=== PATIENT | female | born 1960 | race Caucasian/White ===

== ENCOUNTER 2018-01-21 13:11 | Emergency (ER) | payer MEDICARE ==
[2018-01-21] MEDS ORDERED: TORAdol 30 mg Injection (14:10)
[2018-01-21] MEDS: TORAdol 30 mg Injection IM (14:11)
== END 2018-01-21 14:32 | disposition home or self-care (01) ==
LOC: ED 13:11
CPT/HCPCS: J1885

== ENCOUNTER 2024-11-19 16:32 | Emergency (ER) | payer MEDICARE, OTHER ==
[2024-11-19 17:02] VITALS: TEMP 96.7
[2024-11-19 17:23] LABS: Absolute Neutrophil Ct (ANC) 5.38 x10^3/uL (1.56-6.13); BASOPHIL % 0.4 % (0.1-1.2); Basophil (Absolute #) 0.03 x10^3/uL (0.01-0.08); Eosinophil % 0.1 % (0.7-5.8); Eosinophil (Absolute #) 0.01 x10^3/uL (0.04-0.36); Hematocrit 38.1 % (34.1-44.9); Hemoglobin 12.4 g/dL (11.2-15.7); IMMATURE GRAN # 0.03 x10^3u/L (0.001-0.031); IMMATURE GRAN % 0.4 % (0.001-0.429); Lymphocyte (Absolute #) 1.73 x10^3/uL (1.18-3.74); Lymphocytes % 22.2 % (19.3-51.7); Mean Cell Volume 90.7 fL (79.4-94.8); Mean Corpuscular Hemoglobin 29.5 pg (25.6-32.2); Mean Corpuscular Hgb Concent. 32.5 g/dL (32.2-35.5); Mean Platelet Volume 11.1 fL (9.4-12.3); Monocytes % 7.7 % (4.7-12.5); Neutrophil % 69.2 % (34.0-71.1); Platelet Count 173 x10^3/uL (182-369); Red Cell Distribution Width 12.9 % (11.7-14.4); White Blood Count 7.8 x10^3/uL (3.98-10.04)
--- NOTE | 2024-11-19 17:31 | ERPHSYRPT ---
- History of Present Illness Time Seen by Provider: 11/19/24 17:27 Source: patient Exam Limitations: no limitations Patient Subjective Stated Complaint: pt here for cough, congestion for couple days now. no fever Triage Nursing Assessment: pt alert, walked in, resp easy, occ cough. skin w/d/p Physician History: Patient is 64-year-old female with significant past medical history of smoking hypertension started having a cough for last 2 to 3 days with some productive phlegm. Patient denies any fever or shortness of breath chest pain nausea vomiting abdominal pain or diarrhea. Timing/Duration: day(s) (2-3 days) Cough Quality/Degree: dry cough Possible Cause: no prior episodes Associated Symptoms: denies symptoms Allergies/Adverse Reactions: No Known Drug Allergies Allergy (Verified 11/19/24 16:59) Home Medications: Clopidogrel Bisulfate [Clopidogrel] 75 mg PO DAILY 11/19/24 [History] Metoprolol Tartrate 50 mg [Lopressor 50 MG] 50 mg PO BID 11/19/24 [History] Simvastatin 10 mg [Zocor 10MG] 10 mg PO DAILY 11/19/24 [History] Hx Tetanus, Diphtheria Vaccination/Date Given: No Hx Influenza Vaccination/Date Given: No Hx Pneumococcal Vaccination/Date Given: No Immunizations Up to Date: Yes Travel Risk - International Travel Have you traveled outside of the country in past 3 weeks: No - Emerging Infectious Disease Are you exhibiting symptoms associated with any current EIDs: Yes Symptoms: Cough: New Onset - Review of Systems Constitutional: No Fever, No Chills Eyes: No Symptoms Ears, Nose, & Throat: No Symptoms Respiratory: Cough, No Dyspnea Cardiac: No Chest Pain, No Edema, No Syncope Abdominal/Gastrointestinal: No Abdominal Pain, No Nausea, No Vomiting, No Diarrhea Genitourinary Symptoms: No Dysuria Musculoskeletal: No Back Pain, No Neck Pain Skin: No Rash Neurological: No Dizziness, No Focal Weakness, No Sensory Changes Psychological: No Symptoms Endocrine: No Symptoms All Other Systems: Reviewed and Negative - Past Medical History Pertinent Past Medical History: Yes Neurological History: No Pertinent History ENT History: No Pertinent History Cardiac History: Hypertension Respiratory History: No Pertinent History Endocrine Medical History: No Pertinent History Musculoskeletal History: Arthritis GI Medical History: No Pertinent History History: No Pertinent History Psycho-Social History: Depression Female Reproductive Disorders: No Pertinent History - Past Surgical History Past Surgical History: No Neuro Surgical History: No Pertinent History Cardiac: Other Respiratory: No Pertinent History Gastrointestinal: No Pertinent History Genitourinary: No Pertinent History Musculoskeletal: No Pertinent History Female Surgical History: No Pertinent History Other Surgical History: carotid - Social History Smoking Status: Current every day smoker Exposure to second hand smoke: Yes Drug Use: marijuana - Social Determinants of Health Will the patient participate in the screening: Declined to provide - Nursing Vital Signs Nursing Vital Signs: Initial Vital Signs Temperature 96.7 F 11/19/24 17:01 Pulse Rate 95 H 11/19/24 17:01 Respiratory Rate 16 11/19/24 17:01 Blood Pressure 166/85 11/19/24 17:01 O2 Sat by Pulse Oximetry 96 11/19/24 17:01 Pain Scale Pain Intensity 3 - Physical Exam General Appearance: no apparent distress, alert Eye Exam: PERRL/EOMI, eyes nml inspection Ears, Nose, Throat Exam: normal ENT inspection, TMs normal, pharynx normal, moist mucous membranes Neck Exam: normal inspection, non-tender, supple, full range of motion Respiratory Exam: diminished breath sounds, No respiratory distress Cardiovascular Exam: regular rate/rhythm, normal heart sounds Gastrointestinal/Abdomen Exam: soft, No tenderness Back Exam: normal inspection, No CVA tenderness, No vertebral tenderness Extremity Exam: normal inspection, normal range of motion Neurologic Exam: alert, oriented x 3, cooperative, normal mood/affect, sensation nml, No motor deficits Skin Exam: normal color, warm, dry, No rash Lymphatic Exam: No adenopathy SpO2: 96 - Course Nursing assessment & vital signs reviewed: Yes - Radiology Exams Chest X-ray Interpretation: Interpreted by me, Reviewed by me, Negative, No Pneumonia Ordered Tests: Active Orders 24 hr Category Date Time Status CHEST 2 VIEWS (PA AND LAT) Stat Exams 11/19/24 17:26 Taken CBC W DIFF Stat Lab 11/19/24 17:21 Completed CMP Stat Lab 11/19/24 17:21 Completed Respiratory Therapy Assessment DAILY RT 11/19/24 18:08 Active Medication Summary Discontinued Medications Generic Name Dose Route Start Last Admin Trade Name Freq PRN Reason Stop Dose Admin Albuterol/Ipratropium 3 ml 11/19/24 17:45 11/19/24 18:04 Ipratropium/Albuterol Sulfate 3 Ml Ampul.Neb IH 11/19/24 17:46 3 ml STAT ONE Administration Albuterol/Ipratropium Confirm 11/19/24 17:48 Ipratropium/Albuterol Sulfate 3 Ml Ampul.Neb Administered 11/19/24 17:49 Dose 3 ml IH .STK-MED ONE Budesonide 0.5 mg 11/19/24 17:45 11/19/24 18:04 Budesonide 0.5 Mg/2 Ml Ampul.Neb. IH 11/19/24 17:46 0.5 mg ONCE ONE Administration Lab/Rad Data: Laboratory Result Diagrams 11/19/24 17:21 11/19/24 17:21 Laboratory Results 11/19/24 11/19/24 11/19/24 Range/Units 17:21 17:21 17:06 WBC 7.8 (3.98-10.04) x10^3/uL RBC 4.20 (3.93-5.22) x10^6/uL Hgb 12.4 (11.2-15.7) g/dL Hct 38.1 (34.1-44.9) % MCV 90.7 (79.4-94.8) fL MCH 29.5 (25.6-32.2) pg MCHC 32.5 (32.2-35.5) g/dL RDW 12.9 (11.7-14.4) % Plt Count 173 L (182-369) x10^3/uL MPV 11.1 (9.4-12.3) fL Gran % 69.2 (34.0-71.1) % Immature Gran % (Auto) 0.4 (0.001-0.429) % Nucleat RBC Rel Count 0.0 (0.00-0.2) % Eos # (Auto) 0.01 L (0.04-0.36) x10^3/uL Immature Gran # (Auto) 0.03 (0.001-0.031) x10^3u/L Absolute Lymphs (auto) 1.73 (1.18-3.74) x10^3/uL Absolute Monos (auto) 0.60 (0.24-0.86) x10^3/uL Absolute Nucleated RBC 0.00 (0.00-0.012) x10^3u/L Lymphocytes % 22.2 (19.3-51.7) % Monocytes % 7.7 (4.7-12.5) % Eosinophils % 0.1 L (0.7-5.8) % Basophils % 0.4 (0.1-1.2) % Absolute Granulocytes 5.38 (1.56-6.13) x10^3/uL Basophils # 0.03 (0.01-0.08) x10^3/uL Sodium 144 (135-145) mmol/L Potassium 4.3 (3.5-5.1) mmol/L Chloride 107 (98-107) mmol/L Carbon Dioxide 25 (22-30) mmol/L Anion Gap 15.9 H (5-15) MEQ/L BUN 17 (7-17) mg/dL Creatinine 0.88 (0.52-1.04) mg/dL Estimated GFR 73.3 ML/MIN Glucose 135 H (74-106) mg/dL Calcium 8.9 (8.4-10.2) mg/dL Total Bilirubin 0.40 (0.2-1.3) mg/dL AST 36 (14-36) U/L ALT 26 (0-35) U/L Alkaline Phosphatase 72 (38-126) U/L Serum Total Protein 7.2 (6.3-8.2) g/dL Albumin 4.2 (3.5-5.0) g/dL Influenza Type A Ag NEGATIVE (NEGATIVE) Influenza Type B Ag NEGATIVE (NEGATIVE) RSV (PCR) NEGATIVE (NEGATIVE) SARS-CoV-2 (PCR) POSITIVE A (NEGATIVE) - Progress Progress: unchanged Air Movement: good Blood Culture(s) Obtained: No Counseled pt/family regarding: lab results, diagnosis, need for follow-up, rad results, smoking cessation Medical Desision Making - Diagnostic Testing Diagnostic test were ordered, analyzed, and reviewed by me: Yes Radiological Interpretation: Interpreted by me, Reviewed by me - Risk of complications Low Risk: Low risk of morbidity from additional dx testing or treatment - Departure Departure Disposition: Home Clinical Impression: Acute viral bronchitis, Bronchitis due to COVID-19 virus Condition: Stable Critical Care Time: No Referrals: ZANA LOWRY [Primary Care Provider] - Follow up/PCP as directed Instructions: Acute bronchitis in adults, Cough, Adult (DC), COVID-19 - ED discharge instructions Additional Instructions: Discharge/Care Plan OZZY GOMEZ was seen on 11/19/24 in the Emergency Room. The patient was counseled regarding Diagnosis,Lab results, Imaging studies, need for follow up and when to return to the Emergency Room. Prescriptions given: Discharge Note I have spoken with the patient and/or caregivers. I have explained the patient's condition, diagnosis and treatment plan based on the information available to me at this time. I have answered the patient's and/or caregiver's questions and addressed any concerns. The patient and/or caregivers have as good understanding of the patient's diagnosis, condition and treatment plan as can be expected at this point. The vital signs have been stable. The patient's condition is stable and appropriate for discharge from the emergency department. The patient will pursue further outpatient evaluation with the primary care physician or other designated or consulting physician as outlined in the discharge instructions. The patient and/or caregivers are agreeable to this plan of care and follow-up instructions have been explained in detail. The patient and/or caregivers have received these instruction. The patient/and or caregivers are aware that any significant change in condition or worsening of symptoms should prompt an immediate return to this or the closest emergency department or call 911. OZZY GOMEZ was seen on 11/19/24 n the Emergency Room. At that time you were treated for an emergent condition, during your visit Laboratory, Radiology and/or other procedures may have been ordered. It is very important that you follow-up with your Primary Care Physician ZANA LOWRY within the next 24-48 hours to review your Emergency Room visit and the final results of testing that was ordered. Some test results such as Urine Cultures, Blood Cultures, and other cultures if ordered will not be finalized for 24-48 hours. If you do not have a Primary Care Provider please call the medical records department at [phone] ext [phone] to obtain a copy of your results or you may sign into our patient portal to obtain these results by visiting us @ [email or web address] and completing the following steps: 1. Click on the Patient Portal link 2. Click the Patient Self Enrollment Link to complete the enrollment form and entering your 3. Once the enrollment form is completed you will receive an email with a temporary ID and password at the email address you provided. 4. Next choose a user name and password. Your user name must be at least 4 characters long and your password must be at least 4 characters long. 5. Choose a security question from the list and provide your answer to the question. If you already have signed into the Health Portal you may access your Health Care Information 29/03 by the following steps: 1. Login to our website @ [email or web address] 2. Enter your original user name and password. FAQS The [facility] Health Portal is an online tool that contains your Lab Results, Radiology Reports, Visit History, Discharge Instructions and Health Summary Lab and Radiology Results will not be available for 72 hours on the portal. The Portal is a secure site, passwords are encryted and URLs are re-written so they cannot be copied and pasted. You and authorized family members are the only ones who can access your Portal. Also there is a timeout feature that protects your information if you leave the Portal page open. If you have technical difficulty please use the Contact Us link on the page this will allow you to submit any questions you have regarding the Portal or you may contact the Medical Record Department at [phone] ext [phone]. Prescriptions: Benzonatate 100 mg PO QID #20 cap Budesonide/Formoterol Fumarate [Budesonide-Formoterol 80-4.5] 10.2 gm IH BID #60 inh
[2024-11-19 17:36] LABS: ALBUMIN 4.2 g/dL (3.5-5.0); ANION GAP 15.9 MEQ/L (5-15); BILIRUBIN,TOTAL 0.4 mg/dL (0.2-1.3); Calcium 8.9 mg/dL (8.4-10.2); Creatinine 1 0.88 mg/dL (0.52-1.04); EST GLOMERULAR FILTRATION RATE 73.3 ML/MIN; Potassium 4.3 mmol/L (3.5-5.1); Total Protein 7.2 g/dL (6.3-8.2)
[2024-11-19 17:44] LABS: INFLUENZA A NEGATIVE (NEGATIVE); INFLUENZA B NEGATIVE (NEGATIVE); RESPIRATORY SYNCTIAL VIRUS NEGATIVE (NEGATIVE)
[2024-11-19 17:48] VITALS: RESP 18
[2024-11-19] MEDS ORDERED: DUONEB 0.5-3 MG/3 ml Neb IH ONE (17:48)
[2024-11-19 18:03] LABS: SARS-CoV-2 Xpert Express POSITIVE (NEGATIVE)
[2024-11-19] MEDS: DUONEB 0.5-3 MG/3 ml Neb IH ONE (18:04)
[2024-11-19] MEDS: PULMICORT 0.5 MG/2 ML RESPULES IH ONE (18:04)
[2024-11-19 18:54] VITALS: BP 134/72; PULSE 74; O2SAT 99
--- NOTE | 2024-11-19 19:47 | XRAY ---
Indication: Cough. Comparison: August 01, 2021 PA/lateral chest again hyperinflated without focal infiltrate, consolidation, or large effusion. Heart and mediastinal structures within normal limits. Bony thorax intact again with osteopenia and mild degenerative changes. Impression: Nonacute hyperinflated chest with chronic features.
== END 2024-11-19 18:54 | disposition home or self-care (01) ==
LOC: ED 16:32
DX: U07.1 COVID-19 (principal); J20.8 Acute bronchitis due to other specified organisms; B97.29 Other coronavirus as the cause of diseases classified elsewhere; R05.1 Acute cough; I10 Essential (primary) hypertension; Z79.02 Long term (current) use of antithrombotics/antiplatelets; Z79.899 Other long term (current) drug therapy; Z72.0 Tobacco use
CPT/HCPCS: 0241U; 36415; 71046; 80053; 85025; 94640; 99285; 99283; A9270-GY

== ENCOUNTER 2025-06-24 09:26 | Emergency (ER) | payer MEDICARE, OTHER ==
[2025-06-24 09:38] VITALS: TEMP 98.2
--- NOTE | 2025-06-24 09:48 | ERPHSYRPT ---
- History of Present Illness Patient Subjective Stated Complaint: patient walked into ED drove herself here today shes got horrible cough Triage Nursing Assessment: tio walked into ED by self, gait is steady, alert and orientedx3, persistant cough for a week now, says granddaughter had croup, shes has shortnes of breath at rest. lung sounds bilateral posterior crackles, some audible wheezes. patient states she is coughing up milky mucus. Physician History: Cough, worse since yesterday, continues to smoke, has not been using her inhaler as she thinks she is out of the medication, she does not use home oxygen, this is not her worst episode,Cough is productive of White phlegm, Denies any chest pain, no fevers, Onset of symptoms about a week ago exposed to someone in the home who has croup Timing/Duration: week(s) (1) Severity of Dyspnea-Max: moderate Severity of Dyspnea-Current: moderate Allergies/Adverse Reactions: No Known Drug Allergies Allergy (Verified 06/24/25 09:39) Home Medications: Clopidogrel Bisulfate [Clopidogrel] 75 mg PO DAILY 11/19/24 [History] Metoprolol Tartrate 50 mg [Lopressor 50 MG] 50 mg PO BID 11/19/24 [History] Simvastatin 10 mg [Zocor 10MG] 10 mg PO DAILY 11/19/24 [History] Hx Tetanus, Diphtheria Vaccination/Date Given: No Hx Influenza Vaccination/Date Given: No Hx Pneumococcal Vaccination/Date Given: No Immunizations Up to Date: Yes Travel Risk - International Travel Have you traveled outside of the country in past 3 weeks: No - Emerging Infectious Disease Are you exhibiting symptoms associated with any current EIDs: No Symptoms: Cough: New Onset - Past Medical History Pertinent Past Medical History: Yes Neurological History: No Pertinent History ENT History: No Pertinent History Cardiac History: Hypertension Respiratory History: No Pertinent History Endocrine Medical History: No Pertinent History Musculoskeletal History: Arthritis GI Medical History: No Pertinent History History: No Pertinent History Psycho-Social History: Depression Female Reproductive Disorders: No Pertinent History - Past Surgical History Past Surgical History: No Neuro Surgical History: No Pertinent History Cardiac: Other Respiratory: No Pertinent History Gastrointestinal: No Pertinent History Genitourinary: No Pertinent History Musculoskeletal: No Pertinent History Female Surgical History: No Pertinent History Other Surgical History: carotid - Social History Smoking Status: Current every day smoker Drug Use: none - Social Determinants of Health Will the patient participate in the screening: Yes Do you worry about a steady place to live?: No Do you have any problems with any of the following?: No known problems In the past 12 months,have you had to go without utilities?: No Transportation Issues: No Has anyone in your support network made you feel unsafe?: No Have you or anyone in your house had to go w/o enough food: No - Nursing Vital Signs Nursing Vital Signs: Initial Vital Signs Temperature 98.2 F 06/24/25 09:27 Pulse Rate 88 06/24/25 09:27 Respiratory Rate 18 06/24/25 09:27 Blood Pressure 180/79 06/24/25 09:27 O2 Sat by Pulse Oximetry 92 L 06/24/25 09:27 Pain Scale Pain Intensity 0 - Physical Exam General Appearance: no apparent distress, obese Eye Exam: PERRL/EOMI Neck Exam: normal inspection, supple Respiratory Exam: wheezing Cardiovascular/Chest Exam: normal heart sounds, regular rate/rhythm Abdominal/Gastrointestinal Exam: soft, No tenderness, No distention, No mass Extremity Exam: non-tender, normal range of motion, normal inspection, no calf tenderness, no pedal edema Neurologic Exam: alert, oriented x 3, cooperative, 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 as tested, sensation nml, No motor deficits Skin Exam: normal color, warm, No dry SpO2 Interpretation: normal SpO2: 96 - Radiology Exams Chest X-ray Interpretation: Interpreted by me, No Pneumonia, No Pneumothorax Ordered Tests: Active Orders 24 hr Category Date Time Status It Project Coordinator STAT Care 06/24/25 09:39 Active IV Insertion STAT Care 06/24/25 09:38 Active CHEST 1 VIEW (PORTABLE) Stat Exams 06/24/25 09:38 Ordered BMP Stat Lab 06/24/25 09:50 Completed CBC W DIFF Stat Lab 06/24/25 09:50 Completed Respiratory Therapy Assessment DAILY RT 06/24/25 09:44 Active Medication Summary Discontinued Medications Generic Name Dose Route Start Last Admin Trade Name Freq PRN Reason Stop Dose Admin Albuterol Sulfate 5 mg 06/24/25 09:38 06/24/25 09:57 Albuterol Sulfate 2.5 Mg/3 Ml Neb IH 06/24/25 09:39 5 mg STAT ONE Administration Albuterol Sulfate Confirm 06/24/25 09:54 Albuterol Sulfate 2.5 Mg/3 Ml Neb Administered 06/24/25 09:55 Dose 5 mg IH .STK-MED ONE Lab/Rad Data: Laboratory Result Diagrams 06/24/25 09:50 06/24/25 09:50 Laboratory Results 06/24/25 06/24/25 Range/Units 09:50 09:50 WBC 9.9 (3.98-10.04) x10^3/uL RBC 4.55 (3.93-5.22) x10^6/uL Hgb 13.7 (11.2-15.7) g/dL Hct 41.8 (34.1-44.9) % MCV 91.9 (79.4-94.8) fL MCH 30.1 (25.6-32.2) pg MCHC 32.8 (32.2-35.5) g/dL RDW 12.7 (11.7-14.4) % Plt Count 199 (182-369) x10^3/uL MPV 11.1 (9.4-12.3) fL Gran % 67.7 (34.0-71.1) % Immature Gran % (Auto) 0.5 H (0.001-0.429) % Nucleat RBC Rel Count 0.0 (0.00-0.2) % Eos # (Auto) 0.18 (0.04-0.36) x10^3/uL Immature Gran # (Auto) 0.05 H (0.001-0.031) x10^3u/L Absolute Lymphs (auto) 2.20 (1.18-3.74) x10^3/uL Absolute Monos (auto) 0.72 (0.24-0.86) x10^3/uL Absolute Nucleated RBC 0.00 (0.00-0.012) x10^3u/L Lymphocytes % 22.3 (19.3-51.7) % Monocytes % 7.3 (4.7-12.5) % Eosinophils % 1.8 (0.7-5.8) % Basophils % 0.4 (0.1-1.2) % Absolute Granulocytes 6.69 H (1.56-6.13) x10^3/uL Basophils # 0.04 (0.01-0.08) x10^3/uL Sodium 142 (135-145) mmol/L Potassium 4.0 (3.5-5.1) mmol/L Chloride 110 H (98-107) mmol/L Carbon Dioxide 24 (22-30) mmol/L Anion Gap 13.1 (5-15) MEQ/L BUN 13 (7-17) mg/dL Creatinine 0.75 (0.52-1.04) mg/dL Estimated GFR 88.3 ML/MIN Glucose 104 (74-106) mg/dL Calcium 9.1 (8.4-10.2) mg/dL - Progress Progress: improved Progress Note: 06/24/25 10:48 estimated PEAK FLOW > 250L/min, discussed treatment, 5 day course of steroid, Abx(Doxycycline), she states her MDI is new; follow up to PCP at the end of next week - Departure Departure Disposition: Home Clinical Impression: COPD exacerbation Condition: Fair Critical Care Time: No Referrals: ZANA LOWRY [Primary Care Provider, [facility]] - Follow up with PCP 4 days Instructions: Chronic Obstructive Pulmonary Disease Prescriptions: Prednisone 20 mg [Deltasone 20 mg] 40 mg PO DAILY 5 Days #10 tablet Doxycycline Hyclate 100 mg [Vibramycin 100 MG] 100 mg PO BID 10 Days #20 tab
[2025-06-24] MEDS ORDERED: PROVENTIL 2.5 MG/3 ML NEB IH ONE (09:54)
[2025-06-24 09:57] LABS: BASOPHIL % 0.4 % (0.1-1.2); Basophil (Absolute #) 0.04 x10^3/uL (0.01-0.08); Eosinophil (Absolute #) 0.18 x10^3/uL (0.04-0.36); Hematocrit 41.8 % (34.1-44.9); Hemoglobin 13.7 g/dL (11.2-15.7); IMMATURE GRAN # 0.05 x10^3u/L (0.001-0.031); IMMATURE GRAN % 0.5 % (0.001-0.429); Lymphocyte (Absolute #) 2.20 x10^3/uL (1.18-3.74); Mean Corpuscular Hemoglobin 30.1 pg (25.6-32.2); Mean Corpuscular Hgb Concent. 32.8 g/dL (32.2-35.5); Monocyte (Absolute #) 0.72 x10^3/uL (0.24-0.86); NUCLEATED RBC # 0.00 x10^3u/L (0.00-0.012); NUCLEATED RBC % 0.0 % (0.00-0.2); Platelet Count 199 x10^3/uL (182-369); Red Blood Count 4.55 x10^6/uL (3.93-5.22); White Blood Count 9.9 x10^3/uL (3.98-10.04)
[2025-06-24] MEDS: PROVENTIL 2.5 MG/3 ML NEB IH ONE (09:57)
[2025-06-24 10:09] LABS: Calcium 9.1 mg/dL (8.4-10.2); Carbon Dioxide 24.0 mmol/L (22-30); Creatinine 1 0.75 mg/dL (0.52-1.04); EST GLOMERULAR FILTRATION RATE 88.3 ML/MIN; Glucose 104.0 mg/dL (74-106); Potassium 4.0 mmol/L (3.5-5.1)
[2025-06-24 10:44] VITALS: O2SAT 96
[2025-06-24] MEDS ORDERED: Sterile H2O 10 ml IJ ONE (10:50)
[2025-06-24] MEDS: solu-MEDROL 125 MG, Sterile H2O 10 ml 10 ML IV ONE (10:51)
[2025-06-24 11:10] VITALS: BP 142/100; PULSE 76; RESP 19
--- NOTE | 2025-06-24 19:06 | XRAY ---
Indication: Cough. Comparison: November 19, 2024 Portable chest less inflated with new minimal left costophrenic angle subsegmental atelectasis/scarring. Remaining lungs clear. Heart not enlarged again with mitral valve calcifications. Bony thorax intact again with osteopenia and mild degenerative changes. Impression: Nonacute chest with chronic features.
== END 2025-06-24 11:20 | disposition home or self-care (01) ==
LOC: ED 09:26
DX: J44.1 Chronic obstructive pulmonary disease with (acute) exacerbation (principal); R05.1 Acute cough; I10 Essential (primary) hypertension; Z79.52 Long term (current) use of systemic steroids; Z79.02 Long term (current) use of antithrombotics/antiplatelets; Z79.899 Other long term (current) drug therapy; Z72.0 Tobacco use